=== PATIENT | female | born 1935 | race Caucasian/White ===

== ENCOUNTER → 2017-11-02 | Day surgery (SDC) | payer MEDICARE ==
[2017-10-31 14:57] LABS: BASOPHILS % 0.6 % (0.0-1.0); EOSINOPHILS # (AUTO) 0.1 (0.0-0.4); EOSINOPHILS % 1.4 % (0.0-6.0); HEMATOCRIT 37.2 % (34.2-44.1); HEMOGLOBIN 12.2 g/dL (12.0-16.0); LYMPHOCYTES # (AUTO) 2.2 (1.0-3.2); LYMPHOCYTES % 31.8 % (18.0-39.1); MEAN CORPUSCULAR HEMOGLOBIN 31.8 pg (28-32); MEAN CORPUSCULAR HGB CONC 32.8 g/dL (31-35); MEAN CORPUSCULAR VOLUME 96.9 fL (81-99); MONOCYTES # (AUTO) 0.6 (0.2-0.8); MONOCYTES % 9.1 % (4.4-11.3); NEUTROPHILS % 56.7 % (38.7-80.0); PLATELET COUNT 227 x10e3/uL (140-360); RED BLOOD COUNT 3.84 x10e6/uL (3.6-5.1); RED CELL DISTRIBUTION WIDTH 12.6 % (11.7-14.4)
[2017-10-31 15:04] LABS: INR 1.06
--- NOTE | 2017-10-31 16:50 | Diagnostic Imaging Report ---
Frontal and lateral views of the chest. HISTORY: Preadmission, right carpal tunnel surgery COMPARISON: Chest radiographs May 02, 2012 and May 12, 2011 DISCUSSION: Soft tissue attenuation partially limits sensitivity of the exam. A dual-lead implanted left cardiac device. Lungs: Mild bibasilar atelectasis. No evidence of a consolidative pneumonia or pulmonary alveolar edema. Pleura: No pleural effusion or pneumothorax. Heart and mediastinum: The cardiac silhouette appears mildly enlarged. Bones: Diffusely decreased mineralization of the osseous structures limits bone detail. Radiopaque cement projects at the level of 2 lower thoracic vertebral bodies, compatible prior vertebral augmentation. IMPRESSION: 1. Mild bibasilar atelectasis. 2. Mild cardiomegaly. Signed by: Dr. Peng Zavala D.O., M.M.M. on 10/31/2017 4:45 PM
[~2017-11-02] MED LIST: BACITRACIN 50,000 UNIT VIAL ONE; BUPIVACAINE HCL 0.5% 10ML MPF VIAL INJ ONE; CEFAZOLIN SOD 1 GM VIAL ONE; DEXAMETHASONE SOD PHOS INJ 4 MG/ML VIAL ONE; FENTANYL CITRATE/PF 100MCG/2 ML INJ ONE; FOLIC ACID20 MG; GABAPENTIN100 MG; KETOROLAC TROMETHAMINE 30 MG/ML VIAL ONE; LIDOCAINE HCL 2% LOCAL INJ 5 ML SDV VIAL INJ ONE; LOSARTAN POTASS25 MG; METOPROLOL; NEXIUM40 MG PO; ONDANSETRON HCL INJ 2 MG/ML VIAL ONE; PANTOPRAZOLE SO40 MG PO; PREDNISONE5 MG; PROLIA60 MG/1 ML; PROPOFOL IV EMULSION 10 MG/ML 20 ML VIAL ONE; RANITIDINE HCL150 MG; SEVOFLURANE INHAL SOLN 250 ML PEN BTL ONE; TRAMADOL-ACETAMI1 EA PO; TYLENOL PM PO; VITAMIN B COMP1 EACH; VITAMIN B12; VITAMIN D
--- NOTE | 2017-11-02 10:21 | Operative Report ---
DATE OF PROCEDURE: November 02, 2017 PREOPERATIVE DIAGNOSIS: Right carpal tunnel syndrome. POSTOPERATIVE DIAGNOSIS: Right carpal tunnel syndrome. PROCEDURE: Right carpal tunnel release. ANESTHESIA: General. INDICATIONS: The patient is an 82-year-old woman who presents with right carpal tunnel syndrome. Was taken to the operating room for right carpal tunnel release. PROCEDURE: After induction of general anesthesia, the patient was placed on the operating table in the supine position. The right hand, wrist and forearm were prepped and draped circumferentially in a sterile fashion. A tourniquet was inflated over the upper arm to 250 mmHg. A small midline incision was created over the median palmar crease of the hand just distal to the distal flexor crease of the wrist. The subcutaneous fat was divided. The transverse carpal ligament was identified and incised with a #[id number] blade until the underlying median nerve came into view. As the ssn/ssbn assistant navigator retracted the skin edges, the transverse carpal ligament was divided proximally and distally until the full length of the nerve was exposed and decompressed within the carpal tunnel. More distally, the recurrent motor branch of the nerve was preserved within its fat pad. The wound was then copiously irrigated with Bacitracin solution and hemostasis was secured. The subcutaneous layer was closed with 3-0 Vicryl sutures. The skin was closed with 3-0 nylon suture in a horizontal mattress fashion. The skin was infiltrated with lidocaine without epinephrine. The hand was wrapped. The patient was awakened and extubated, and taken to the postanesthesia care unit in stable condition. No intraoperative complications were encountered. Estimated blood loss was minimal. Job#: [id number]
[2017-11-02 10:35] VITALS: BP 138/72
== END | disposition home or self-care (01) ==
LOC: OR 06:26
PROVIDERS: ATTEND Neurological Surgery
DX: G56.01 Carpal tunnel syndrome, right upper limb (principal); M19.90 Unspecified osteoarthritis, unspecified site; I10 Essential (primary) hypertension; Z88.2 Allergy status to sulfonamides; Z01.810 Encounter for preprocedural cardiovascular examination; Z01.812 Encounter for preprocedural laboratory examination; Z01.818 Encounter for other preprocedural examination; Z79.82 Long term (current) use of aspirin; Z68.32 Body mass index [BMI] 32.0-32.9, adult
CPT/HCPCS: 36415; 64721; 71046; 85025; 85610; 85730; 93005; J0690; J1100; J1885; J2001; J2405

== ENCOUNTER 2022-08-20 14:10 | Emergency (ER) | payer MEDICARE ==
[~2022-08-20] VITALS: Ht 165.1 cm; Wt 77.1 kg
[2022-08-20 14:10] VITALS: O2SAT 99
[~2022-08-20 14:10] MED LIST changes: -BACITRACIN 50,000 UNIT VIAL ONE; -BUPIVACAINE HCL 0.5% 10ML MPF VIAL INJ ONE; -CEFAZOLIN SOD 1 GM VIAL ONE; -DEXAMETHASONE SOD PHOS INJ 4 MG/ML VIAL ONE; -FENTANYL CITRATE/PF 100MCG/2 ML INJ ONE; -KETOROLAC TROMETHAMINE 30 MG/ML VIAL ONE; -LIDOCAINE HCL 2% LOCAL INJ 5 ML SDV VIAL INJ ONE; -ONDANSETRON HCL INJ 2 MG/ML VIAL ONE; -PROPOFOL IV EMULSION 10 MG/ML 20 ML VIAL ONE; -SEVOFLURANE INHAL SOLN 250 ML PEN BTL ONE
[2022-08-20 15:03] LABS: CLARITY,URINE TURBID (CLEAR); COLOR,URINE YELLOW (YELLOW); LEUKOCYTE ESTERASE ,URINE LARGE (NEGATIVE); NITRITE,URINE NEGATIVE (NEGATIVE); PROTEIN,URINE DIPSTICK 2+ (NEGATIVE)
[2022-08-20 15:04] LABS: KETONES,URINE NEGATIVE (NEGATIVE); URINE UROBILINOGEN 0.2 mg/dL (0.2 - 1)
[2022-08-20 15:26] LABS: BACTERIA,URINE MANY /HPF; EPITHELIAL CELLS,URINE FEW /LPF; WBC,URINE (MAN) 21-50 /HPF (0-5)
[2022-08-20] MEDS ORDERED: CEFDINIR300 MG PO (16:12)
[2022-08-20] MEDS ORDERED: CEFTRIAXONE 1 GM VIAL IM ONE (16:15)
[2022-08-20] MEDS ORDERED: LIDOCAINE HCL 1% 2 ML AMP ONE (16:18)
== END 2022-08-20 16:25 | disposition home or self-care (01) ==
LOC: ER 14:20
DX: N39.0 Urinary tract infection, site not specified (principal); K21.9 Gastro-esophageal reflux disease without esophagitis; Z79.899 Other long term (current) drug therapy
CPT/HCPCS: 81001; 87086; 87186; 99283; J0696; J2001

== ENCOUNTER → 2023-08-30 | Day surgery (SDC) | payer MEDICARE ==
[2023-08-28 09:55] LABS: BASOPHILS # (AUTO) 0.1 (0.0-0.1); BASOPHILS % 0.7 % (0.0-1.0); EOSINOPHILS # (AUTO) 0.2 (0.0-0.4); HEMOGLOBIN 9.9 g/dL (12.0-16.0); LYMPHOCYTES # (AUTO) 2.6 (1.0-3.2); LYMPHOCYTES % 34.2 % (18.0-39.1); MEAN CORPUSCULAR HGB CONC 30.9 g/dL (31-35); MEAN CORPUSCULAR VOLUME 90.7 fL (81-99); MONOCYTES # (AUTO) 0.7 (0.2-0.8); MONOCYTES % 8.7 % (4.4-11.3); NEUTROPHILS # (AUTO) 4.1 (2.1-6.9); NEUTROPHILS % 54.1 % (38.7-80.0); PLATELET COUNT 240 x10e3/uL (140-360); RED BLOOD COUNT 3.53 x10e6/uL (3.6-5.1); RED CELL DISTRIBUTION WIDTH 12.8 % (11.7-14.4); WHITE BLOOD COUNT 7.49 x10e3/uL (4.8-10.8)
[~2023-08-30] MED LIST changes: +AMLODIPINE BESYL5 MG PO; +CEFDINIR300 MG PO; +FAMOTIDINE20 MG PO; +LIDOCAINE HCL 2% LOCAL INJ 5 ML SDV VIAL INJ ONE; +METOPROLOL SUCC50 MG PO; +MONTELUKAST SOD10 MG PO; +PREDNISONE1 MG PEG; +PROPOFOL IV EMULSION 10 MG/ML 20 ML VIAL ONE; +SUCRALFATE1 GM PO
[2023-08-30] MEDS: LACTATED RINGER'S 1,000 ML ONE (09:29)
[2023-08-30 12:55] VITALS: BP 114/62; PULSE 70; RESP 16; TEMP 97; O2SAT 98
== END | disposition home or self-care (01) ==
LOC: OR 08:51
PROVIDERS: ATTEND Internal Medicine Gastroenterology
DX: K29.00 Acute gastritis without bleeding (principal); K29.50 Unspecified chronic gastritis without bleeding; K44.9 Diaphragmatic hernia without obstruction or gangrene; K21.00 Gastro-esophageal reflux disease with esophagitis, without bleeding; M81.0 Age-related osteoporosis without current pathological fracture; Z78.9 Other specified health status; I10 Essential (primary) hypertension; J44.9 Chronic obstructive pulmonary disease, unspecified; N39.0 Urinary tract infection, site not specified; G89.29 Other chronic pain; M31.6 Other giant cell arteritis; Z88.2 Allergy status to sulfonamides; Z01.812 Encounter for preprocedural laboratory examination; Z01.818 Encounter for other preprocedural examination; Z79.899 Other long term (current) drug therapy; Z68.28 Body mass index [BMI] 28.0-28.9, adult; Z95.0 Presence of cardiac pacemaker
CPT/HCPCS: 36415; 43239; 85025; 88305; 88342; 93005; J2001; J2704; J7121; 88312

== ENCOUNTER → 2023-12-29 | Outpatient (REF) | payer MEDICARE ==
[~2023-12-29] MED LIST changes: +DIATRIZOATE MEGL/DIATRIZOA SOD 30 ML BTL PO ONE; +IOPAMIDOL 370 MG/ML 100 ML INFUS..BTL INJ ONE; -LIDOCAINE HCL 2% LOCAL INJ 5 ML SDV VIAL INJ ONE; -PROPOFOL IV EMULSION 10 MG/ML 20 ML VIAL ONE
[2023-12-29 10:25] LABS: CREATININE, SERUM 0.87 mg/dL (0.57-1.11)
== END ==
LOC: CT 09:30
PROVIDERS: ATTEND Internal Medicine Gastroenterology
DX: R10.13 Epigastric pain (principal); R10.30 Lower abdominal pain, unspecified; K59.00 Constipation, unspecified; K21.9 Gastro-esophageal reflux disease without esophagitis; K44.9 Diaphragmatic hernia without obstruction or gangrene; Z68.26 Body mass index [BMI] 26.0-26.9, adult; Z71.3 Dietary counseling and surveillance; Z78.9 Other specified health status
CPT/HCPCS: 36415; 74177; 82565; 84520; Q9963; Q9967